=== PATIENT | male | born 1980 | race Hispanic/Latino ===

== ENCOUNTER 2019-11-03 13:32 | Emergency (ER) | payer SELFPAY ==
[2019-11-03] MEDS ORDERED: Fluorescein Opthalmic Strip ONE (14:24)
[2019-11-03] MEDS ORDERED: Proparacaine 0.5% Opth 15 ML BOT ONE (14:25)
== END 2019-11-03 15:19 | disposition home or self-care (01) ==
LOC: ERS 13:32
DX: T15.01XA Foreign body in cornea, right eye, initial encounter (principal); F17.210 Nicotine dependence, cigarettes, uncomplicated
CPT/HCPCS: 99283